=== PATIENT | male | born 1940 | race Caucasian/White ===

== ENCOUNTER 2024-01-06 06:37 | Day surgery (SDC) | payer MEDICARE, OTHER, SELFPAY ==
[2024-01-06 11:36] VITALS: BMI 28.2
[2024-01-06 11:37] VITALS: BP 120/72
[2024-01-06 15:15] VITALS: BP 101/67
[2024-01-06 15:30] VITALS: BP 102/69
[2024-01-06 15:45] VITALS: BP 112/76
== END 2024-01-06 16:42 | disposition home or self-care (01) ==
LOC: SDS 06:37
PROVIDERS: ATTENDING PHYSICIAN Internal Medicine Gastroenterology
DX: K22.89 Other specified disease of esophagus (principal); K22.2 Esophageal obstruction; K86.2 Cyst of pancreas; R93.3 Abnormal findings on diagnostic imaging of other parts of digestive tract; R93.89 Abnormal findings on diagnostic imaging of other specified body structures; Z79.01 Long term (current) use of anticoagulants
CPT/HCPCS: 43259